=== PATIENT | male | born 1975 | race African-American/Black ===

== ENCOUNTER 2024-09-05 16:44 | Inpatient (IN) | payer OTHER ==
[2024-09-05 17:35] VITALS: BMI 33.0
[2024-09-05] MEDS ORDERED: NICOTINE POLACRILEX 2 MG LOZENGE BC PRN (18:00)
[2024-09-05] MEDS ORDERED: NALOXONE (NARCAN) HCL 4 MG/0.1 ML SPRAY NS PRN (18:00)
[2024-09-05] MEDS ORDERED: ACETAMINOPHEN 325 MG TABLET (FP) PO PRN (18:00)
[2024-09-05] MEDS ORDERED: BENZONATATE 200 MG CAPSULE PO PRN (18:00)
[2024-09-05] MEDS ORDERED: guaiFENesin 600 MG TABLET.ER (FP) PO PRN (18:00)
[2024-09-05] MEDS ORDERED: MAGNESIUM HYDROX 2400MG/30ML ORAL SUSPENSION 30 ML CUP PO PRN (18:00)
[2024-09-05] MEDS ORDERED: NICOTINE POLACRILEX 2 MG GUM BUC PRN (18:00)
[2024-09-05] MEDS ORDERED: BISACODYL 5 MG TABLET.DR (FP) PO PRN (18:00)
[2024-09-05] MEDS ORDERED: BENZOCAINE/MENTHOL (CHLORASEPTIC ) LOZENGE MM PRN (18:00)
[2024-09-05] MEDS ORDERED: MAG HYDROX/AL HYDROX/SIMETH 30 ML UNIT-DOSE CUP PO PRN (18:00)
[2024-09-05] MEDS ORDERED: LOPERAMIDE HCL 2 MG CAPSULE PO PRN (18:00)
[2024-09-05] MEDS ORDERED: POLYETHYLENE GLYCOL (HEALTHYLAX) 3350 17 GM PACKET PO PRN (18:00)
[2024-09-05] MEDS ORDERED: DOCUSATE SODIUM 100 MG CAPSULE (FP) PO PRN (18:00)
[2024-09-05] MEDS: MELATONIN 5 MG TABLETS PO SCH (22:08)
[2024-09-05] MEDS: traZODone HCL 50 MG TABLET (FP) PO ONE (22:09)
[2024-09-05] MEDS: MIRTAZAPINE 15 MG TABLET (FP) PO ONE (22:09)
[2024-09-05] MEDS: THIAMINE 100 MG TABLET PO SCH (22:09)
[2024-09-05] MEDS: hydrOXYzine PAMOATE 25 MG CAPSULE (FP) PO PRN (22:11)
[2024-09-05] MEDS: TUBERCULIN PPD 5 TU/0.1ML SYRINGE (IN PATIENT USE ONLY) ID ONE (22:15)
[2024-09-06] MEDS: ELVITEG/COB/EMTRI/TENOF (GENVOYA) TABLET PO SCH (09:27)
[2024-09-06] MEDS: PRENATAL VITAMINS W/ FOLIC ACID TABLET (FP) PO SCH (09:27)
[2024-09-06 09:57] LABS: HEMATOCRIT 41.2 % (35.4-49); HEMOGLOBIN 13.7 GM/dL (11.7-16.9); MCH 31.4 pg (25.7-33.7); MCHC 33.1 g/dl (32.0-35.9); MEAN CELL VOLUME 94.7 fl (80-96); MEAN PLT VOLUME 8.1 fl (7.5-11.1); PLATELET COUNT 266 10^3/uL (134-434); RBC 4.35 M/mm3 (4.00-5.60); RDW 13.9 % (11.9-15.9); WHITE BLOOD COUNT 4.6 K/mm3 (4.0-10.0)
[2024-09-06 10:11] LABS: CHLORIDE 112 mmol/L (98-107); SODIUM 143 mmol/L (136-145)
[2024-09-06 10:13] LABS: CALCIUM 8.9 mg/dL (8.5-10.1)
[2024-09-06 10:14] LABS: ALBUMIN 3.3 g/dl (3.4-5.0); ANION GAP 6 mmol/L (4-13); BLOOD UREA NITROGEN 11.1 mg/dL (7-18); CO2 25 mmol/L (21-32); GLUCOSE,RANDOM 96 mg/dL (74-106)
[2024-09-06 10:17] LABS: CREATININE 1.2 mg/dL (0.55-1.3); SGOT/AST 12 U/L (15-37); SGPT/ALT 26 U/L (13-61)
[2024-09-06 10:18] LABS: BILIRUBIN,TOTAL 0.2 mg/dL (0.2-1); TOT PROT 6.3 g/dl (6.4-8.2)
[2024-09-06 10:20] LABS: ALK PHOS 60 U/L (45-117)
[2024-09-06] MEDS: FLU VACCINE (FLULAVAL) PF 45 MCG/0.5 ML SYRINGE 2024-2025 IM ONE (15:22)
[2024-09-06] MEDS: METHOCARBAMOL 500 MG TABLET PO PRN (21:31)
[2024-09-07] MEDS ORDERED: traZODone HCL 50 MG TABLET (FP) PO PRN (10:13)
[2024-09-07] MEDS: traZODone HCL 50 MG TABLET (FP) PO PRN (21:26)
[2024-09-07] MEDS: MIRTAZAPINE 15 MG TABLET (FP) PO SCH (21:26)
[2024-09-17] MEDS: IBUPROFEN 600 MG TABLET (FP) PO PRN (21:13)
[2024-09-18] MEDS: BACLOFEN 10 MG TABLET (FP) PO SCH (21:23)
[2024-09-19] MEDS: FLU VACCINE (FLULAVAL) PF 45 MCG/0.5 ML SYRINGE 2024-2025 IM ONE (13:16)
[2024-09-21] MEDS: IBUPROFEN 400 MG TABLET (FP) PO PRN (11:06)
[2024-10-03 06:06] VITALS: BP 126/84; PULSE 85; RESP 17; TEMP 97.5
[2024-10-03] MEDS: NALOXONE (NYS OPIOID OVERDOSE PROGRAM) 4 MG/0.1 ML SPRAY NS SCH (09:13)
== END 2024-10-03 09:26 | disposition home or self-care (01) | DRG 774 ==
LOC: YASAS 16:44 → Y3NR 18:39 → Y3W 09-08 11:11
PROVIDERS: ADMIT Allergy & Immunology; ATTEND Psychiatry & Neurology Pain Medicine
PROC: HZ42ZZZ Group Counseling for Substance Abuse Treatment, Cognitive-Behavioral (ICD-10-PCS; principal; 2024-09-05)
DX: F14.10 Cocaine abuse, uncomplicated (principal); F17.210 Nicotine dependence, cigarettes, uncomplicated; F39 Unspecified mood [affective] disorder; F31.9 Bipolar disorder, unspecified; Z21 Asymptomatic human immunodeficiency virus [HIV] infection status; G47.00 Insomnia, unspecified; Z86.59 Personal history of other mental and behavioral disorders; Z86.19 Personal history of other infectious and parasitic diseases; Z79.899 Other long term (current) drug therapy
CPT/HCPCS: 36415; 80053; 80305; 80307; 85027; 86593; 86780; 90656; 93005; 93010; G0008; J0475